=== PATIENT | female | born 1990 | race Caucasian/White ===

== ENCOUNTER 2016-12-24 13:53 | Emergency (ER) | payer OTHER ==
[~2016-12-24] VITALS: Ht 154.9 cm; Wt 72.5 kg
[~2016-12-24 13:53] MED LIST: CEPH-443 PO
[2016-12-24 13:54] VITALS: Ht 154.9 cm; Wt 72.5 kg
[2016-12-24] MEDS ORDERED: ACET500C5 PO (14:25)
--- NOTE | 2016-12-24 14:39 | ERD ---
ER Documentation Chief Complaint Date/Time DATE: 12/24/16 TIME: 14:30 Chief Complaint PT with L arm pain and wrist swelling X 1 years, worst in last 2 weeks. HPI 26-year-old female patient with no significant past medical history presents to the ED complaining of a ball on her left wrist that she has noticed since 1 year ago. Reports that she started experiencing pain since 2 weeks ago. States that it has slightly gotten bigger. Describes the pain as a pulse sating sensation and rates it a 7 out of 10. States that she feels numbness and tingling. Denies any chest pain, shortness of breath, wheezing, abdominal pain , nausea, vomiting, headache, weakness. ROS All systems reviewed and are negative except as per history of present illness. Medications Home Meds Active Scripts Acetaminophen* (Tylophen*) 500 Mg Capsule, 1 CAP PO Q6H Y for PAIN AND OR ELEVATED TEMP, #20 CAP Prov:JARETH VALENTIN PA-C 12/24/16 Cephalexin* (Keflex*) 500 Mg Capsule, 500 MG PO QID for 7 Days, CAP Prov:DARREL DIMAS PA-C 12/30/15 Allergies Allergies: Coded Allergies: No Known Allergy (Unverified , 12/30/15) PMhx/Soc Medical and Surgical Hx: pt denies Medical Hx, pt denies Surgical Hx Hx Alcohol Use: No Hx Substance Use: No Hx Tobacco Use: No Smoking Status: Never smoker Physical Exam Vitals Vital Signs Date Time Temp Pulse Resp B/P Pulse Ox O2 Delivery O2 Flow Rate FiO2 12/24/16 13:54 97.8 84 16 126/85 95 Physical Exam Const: Xdx-[id number], well-nourished. In no acute distress. Head: Atraumatic, normocephalic Eyes: Normal Conjunctiva without injection ENT: Normal external ear, nose and mouth. Neck: Full range of motion. No meningismus. Resp: Clear to auscultation bilaterally. No wheezing, rhonchi, rales, or crackles. No accessory muscle use. No retractions. Cardio: Regular rate and rhythm, no murmurs Skin: No petechiae, purpura or rashes. 3 cm mobile flesh colored cyst noted on the dorsal aspect of left wrist/hand. No surrounding erythema, edema. No fluctuance. No induration. No warmth to touch. No lymphatic streaking. Back: No midline tenderness. No CVA tenderness. Ext: No cyanosis, or edema. Cap refill less than 2 seconds. Distal pulses intact bilaterally. Neur: Awake and alert. Normal gait and coordination. Muscle strength 5/5. Sensation intact bilaterally. Psych: Normal Mood and Affect Procedures/MDM 26-year-old female patient with no significant past medical history presents the ED complaining of a bump on her left wrist/hand. Patient is afebrile and nontoxic-appearing. Patient has normal vital signs. 4 cm cyst is likely secondary consistent with a ganglion cyst. No evidence of fractures, dislocations, compartment syndrome, neurologic injury, vascular injury, open joint, open fracture, tendon laceration, septic arthritis, osteomyelitis, DVT, foreign body, or other emergent conditions. Low suspicion for scabies, SJS/TEN , erythema multiforme, sepsis, cellulitis, necrotizing fascitis, gangrene, meningococcemia or other emergent conditions. Discharge medications: Tylenol Follow up with primary care physician in 1-2 days for a referral to an orthopedic physician/general surgeon. Instructed patient to return to the ED sooner for any worsening symptoms. Patient's questions were answered. Patient understood and agreed with discharge plan. Patient discharged stable. Departure Diagnosis: Primary Impression: Ganglion cyst Condition: Stable Patient Instructions: Ganglion Cyst: Hand, Treating Ganglions Referrals: [facility] YOU HAVE RECEIVED A MEDICAL SCREENING EXAM AND THE RESULTS INDICATE THAT YOU DO NOT HAVE A CONDITION THAT REQUIRES URGENT TREATMENT IN THE EMERGENCY DEPARTMENT. FURTHER EVALUATION AND TREATMENT OF YOUR CONDITION CAN WAIT UNTIL YOU ARE SEEN IN YOUR DOCTORS OFFICE WITHIN THE NEXT 1-2 DAYS. IT IS YOUR RESPONSIBILITY TO MAKE AN APPOINTMENT FOR FOLOW-UP CARE. IF YOU HAVE A PRIMARY DOCTOR --you should call your primary doctor and schedule an appointment IF YOU DO NOT HAVE A PRIMARY DOCTOR YOU CAN CALL OUR PHYSICIAN REFERRAL HOTLINE AT IF YOU CAN NOT AFFORD TO SEE A PHYSICIAN YOU CAN CHOSE FROM THE FOLLOWING [facility] [address] [facility] [address] [facility] [address] [facility] [address] [facility]. [facility] [address] [facility]. [facility] [address] [facility]. [facility] YOU HAVE RECEIVED A MEDICAL SCREENING EXAM AND THE RESULTS INDICATE THAT YOU DO NOT HAVE A CONDITION THAT REQUIRES URGENT TREATMENT IN THE EMERGENCY DEPARTMENT. FURTHER EVALUATION AND TREATMENT OF YOUR CONDITION CAN WAIT UNTIL YOU ARE SEEN IN YOUR DOCTORS OFFICE WITHIN THE NEXT 1-2 DAYS. IT IS YOUR RESPONSIBILITY TO MAKE AN APPOINTMENT FOR FOLOW-UP CARE. IF YOU HAVE A PRIMARY DOCTOR --you should call your primary doctor and schedule and appointment IF YOU DO NOT HAVE A PRIMARY DOCTOR YOU CAN CALL OUR PHYSICIAN REFERRAL HOTLINE AT . IF YOU CAN NOT AFFORD TO SEE A PHYSICIAN YOU CAN CHOSE FROM THE FOLLOWING [facility] INSTITUTIONS[facility] [address] [place] [address] [facility] [address] [place] [address] [facility] [address] [place] [address] [facility] Urgent Care 7 a.m.- 11 p.m. Every Day of the Week NO APPOINTMENT OR AUTHORIZATION NEEDED SO [facility] Hours: Mon-Fri 9:00 AM - 5:00 PM Additional Instructions: Call your primary care doctor TOMORROW for an appointment during the next 1-2 days for a referral to an orthopedic physician for further evaluation and treatment.See the doctor sooner or return here if your condition worsens before your appointment time. JARETH VALENTIN PA-C Dec 24, 2016 14:39
== END 2016-12-24 15:33 | disposition home or self-care (01) ==
LOC: FTE 13:53
DX: M67.441 Ganglion, right hand (principal)
CPT/HCPCS: 99283